=== PATIENT | male | born 1980 | race Caucasian/White ===

== ENCOUNTER 2024-01-07 13:25 | Emergency (ER) | payer BC ==
[~2024-01-07] VITALS: Ht 172.7 cm; Wt 111.1 kg
[2024-01-07 13:45] VITALS: BP 103/67; PULSE 77; RESP 18; TEMP 97.4; O2SAT 99
[2024-01-07 14:30] VITALS: O2SAT 99
[2024-01-07] MEDS ORDERED: DICL20GE TP (14:31)
[2024-01-07] MEDS ORDERED: CYCL-711 PO (14:31)
[2024-01-07] MEDS ORDERED: CYCLOBENZAPRINE 10 MG TAB ONE (14:34)
[2024-01-07] MEDS ORDERED: LIDOCAINE 5% 1 EA PATCH TP ONE (14:35)
[2024-01-07] MEDS ORDERED: KETOROLAC 60 MG/2 ML VIAL IM ONE (14:35)
[2024-01-07] MEDS: KETOROLAC 60 MG/2 ML VIAL IM ONE (14:39)
[2024-01-07] MEDS: CYCLOBENZAPRINE 10 MG TAB PO ONE (14:39)
[2024-01-07] MEDS: LIDOCAINE 5% 1 EA PATCH TP ONE (14:40)
== END 2024-01-07 15:05 | disposition home or self-care (01) ==
LOC: MED 13:25
DX: S29.012A Strain of muscle and tendon of back wall of thorax, initial encounter (principal); Z79.899 Other long term (current) drug therapy; X58.XXXA Exposure to other specified factors, initial encounter; Y93.89 Activity, other specified; Y92.89 Other specified places as the place of occurrence of the external cause; Y99.8 Other external cause status
CPT/HCPCS: 96372; 99283; J1885